=== PATIENT | female | born 2005 | race Caucasian/White ===

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

== ENCOUNTER 2023-04-09 00:15 | Emergency (ER) | payer OTHER, BC ==
[~2023-04-09] VITALS: Ht 157.5 cm; Wt 65.8 kg
[~2023-04-09 00:15] MED LIST changes: +ONDA4ODT MM
[2023-04-09 03:48] VITALS: BP 126/77
== END 2023-04-09 05:04 | disposition home or self-care (01) ==
LOC: ER 00:15
DX: S02.2XXA Fracture of nasal bones, initial encounter for closed fracture (principal); V57.5XXA Driver of pick-up truck or van injured in collision with fixed or stationary object in traffic accident, initial encounter
CPT/HCPCS: 70450; 70486; 99283-25